=== PATIENT | male | born 1990 | race Caucasian/White ===

== ENCOUNTER 2020-02-26 04:23 | Inpatient (IN) | payer OTHER ==
[2020-02-26 05:15] LABS: Actual Bicarbonate (HCO3a) 22.6 mEq/L (22-28); Analyzer IN Cardio ER; Base Excess (BEa) 0.8 mEq/L (-2.0 to +3.0); CO2 Tension 28.7 mmHg (35.0-45.0); Calcium, Ionized (arterial) 1.11 mmol/L (1.12-1.30); Carboxyhemoglobin (COHb) 0.1 gm% (0.0-3.0); Hemoglobin (Hb) 14.3 g/dL (14.0-18.0); O2 Tension (PaO2), arterial 76.2 mmHg (80.0-100.0); pH, Arterial 7.51 (7.35-7.45)
[2020-02-26 05:16] LABS: #Basophils 0.1 thou/uL (0.0-0.2); #Lymphocytes 1.3 thou/uL (1.20-3.40); #Monocytes 0.5 thou/uL (0.11-0.59); %Basophils 0.6 % (0.0-1.0); %Eosinophils 0.4 % (0.0-10.0); %Lymphocytes 10.3 % (21.0-51.0); %Monocytes 3.9 % (0.0-10.0); %Neutrophils 84.8 % (42.0-75.0); Hemoglobin 13.3 g/dL (14.0-18.0); Mean Corpuscular HGB CONC 33.6 g/dL (32.0-36.0); Mean Corpuscular Hemoglobin 31.8 pg (27.0-31.0); Mean Corpuscular Volume 94.5 fL (78.0-98.0); Mean Platelet Volume 7.4 fL (7.4-10.4); Platelet Count 197 thou/uL (130-400); Red Blood Cell (RBC) Count 4.19 mill/uL (4.70-6.10); White Blood Cell (WBC) Count 12.9 thou/uL (4.8-10.8)
[2020-02-26 05:17] LABS: ALV-art Gradient 244.425 mmHg (0-20); Puncture Site RRA
[2020-02-26 05:30] LABS: ALT (SGPT) 27 U/L (8-55); AST (SGOT) 22 U/L (5-34); Albumin 3.7 g/dL (3.5-5.0); Alkaline Phosphatase 65 U/L (40-110); Anion Gap 16 mmol/L (10-20); BUN (Urea Nitrogen) 8 mg/dL (8.9-20.6); Bilirubin, Total 0.4 mg/dL (0.2-1.2); Calc. Creatinine Clearance 0 mL/min (70-130); Calcium 8.4 mg/dL (7.8-10.44); Carbon Dioxide 22 mmol/L (22-29); Chloride 103 mmol/L (98-107); Globulin 3.4 g/dL (2.4-3.5); Glucose 118 mg/dL (70-105); Potassium 3.5 mmol/L (3.5-5.1); Protein, Total 7.1 g/dL (6.0-8.3); Sodium 137 mmol/L (136-145)
[2020-02-26] MEDS ORDERED: cefTRIAXone\\ROCEPHIN 2 GM VIAL ONE (05:44)
--- NOTE | 2020-02-26 05:53 | PDOC.FPRHP ---
- History of Present Illness Chief Complaint: SOB History of Present Illness: Patient is a 29 year old male with no significant medical history who presents to the ED with worsening SOB. Onset 02/20/20. Reports SOB and dizziness worsens with any activity such as talking and ambulating. Patient was seen at a freestanding ED on 02/23 and diagnosed with COVID. CT Chest was reportedly clear at that time. Patient was given decadron and prescribed a Z-pack. Reports taking as prescribed. Since the ER visit on the , he reports his symptoms have worsened. Notes headache, fever, cough and diarrhea, and nausea. No vomiting. He has had blood tinged sputum. 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 She is aware of his current condition. ED Course: Initial O2 sat was 86% on RA. Transitioned to NC to max 6L with sat's up to 92%. Then transitioned to HF with improvement of sat's to 96%. CXR showed multilobular infiltrates consistent with COVID pneumonia. Given Ceftriazone 2g and azithromycin 500mg. - Allergies/Adverse Reactions Allergies Allergy/AdvReac Type Severity Reaction Status Date / Time No Known Allergies Allergy Verified 02/26/20 10:14 - Home Medications Medication Instructions Recorded Confirmed Type Ascorbic Acid [Vitamin C Chewable 1,000 mg PO DAILY 02/26/20 02/26/20 History Tablet] Aspirin Chewable 81 mg PO DAILY 02/26/20 02/26/20 History Azithromycin [Zithromax] 250 mg PO DAILY 02/26/20 02/26/20 History Cholecalciferol [Vitamin D3] 50 mcg PO DAILY 02/26/20 02/26/20 History Famotidine [Pepcid] 20 mg PO DAILY 02/26/20 02/26/20 History Zinc 23 mg PO DAILY 02/26/20 02/26/20 History - History PMHx: None PSHx: testicular torsion repair, ganglion cyst removal FHx: Noncontributory Social: Denies tobacco and drug use. ETOH use 2 times per week. - Review of Systems General: reports: fever/chills. denies: fatigue Eyes: denies: vision changes ENT: denies: nasal congestion, rhinorrhea Respiratory: reports: cough, shortness of breath Cardiovascular: reports: chest pain (tightness). denies: palpitation, edema Gastrointestinal: reports: diarrhea. denies: nausea, vomiting, abdominal pain Genitourinary: denies: dysuria Skin: denies: rashes, lesions Musculoskeletal: denies: pain Neurological: denies: seizure, weakness Psychological: denies: anxiety, depression - Vital signs BP: [113/79] HR: [100] RR: [18] Tmax: [102.1F] Pox: 97% on [HF] Wt: [111.1kg] - Physical Exam Constitutional: NAD, awake, alert and oriented HEENT: normocephalic and atraumatic, no scleral icterus, grossly normal vision, grossly normal hearing, MMM Neck: supple, FROM Chest: no-tender to palpation Heart: RRR, normal S1/S2, no edema Lungs: good air movement, no retractions, other (mild rhonchi diffusely) Abdomen: soft, non-tender, bowel sounds present Musculoskeletal: ROM grossly normal Neurological: no focal deficit Skin: no jaundice Heme/Lymphatic: no purpura, no petechia Psychiatric: normal mood and affect FMR H&P: Results - Labs Result Diagrams: 02/26/20 04:50 02/26/20 04:50 Lab results: WBC 12.9 thou/uL (4.8-10.8) H 02/26/20 04:50 Hgb 13.3 g/dL (14.0-18.0) L 02/26/20 04:50 Hct 39.6 % (42.0-52.0) L 02/26/20 04:50 MCV 94.5 fL (78.0-98.0) 02/26/20 04:50 Plt Count 197 thou/uL (130-400) 02/26/20 04:50 Neutrophils % 84.8 % (42.0-75.0) H 02/26/20 04:50 ABG pH 7.51 (7.35-7.45) H 02/26/20 05:05 ABG pCO2 28.7 mmHg (35.0-45.0) L 02/26/20 05:05 ABG pO2 76.2 mmHg (80.0-100.0) L 02/26/20 05:05 Sodium 137 mmol/L (136-145) 02/26/20 04:50 Potassium 3.5 mmol/L (3.5-5.1) 02/26/20 04:50 Chloride 103 mmol/L (98-107) 02/26/20 04:50 Carbon Dioxide 22 mmol/L (22-29) 02/26/20 04:50 BUN 8 mg/dL (8.9-20.6) L 02/26/20 04:50 Creatinine 0.89 mg/dL (0.7-1.3) 02/26/20 04:50 Glucose 118 mg/dL (70-105) H 02/26/20 04:50 Lactic Acid 1.1 mmol/L (0.5-2.2) 02/26/20 04:50 Calcium 8.4 mg/dL (7.8-10.44) 02/26/20 04:50 Total Bilirubin 0.4 mg/dL (0.2-1.2) 02/26/20 04:50 AST 22 U/L (5-34) 02/26/20 04:50 ALT 27 U/L (8-55) 02/26/20 04:50 Alkaline Phosphatase 65 U/L (40-110) 02/26/20 04:50 Serum Total Protein 7.1 g/dL (6.0-8.3) 02/26/20 04:50 Albumin 3.7 g/dL (3.5-5.0) 02/26/20 04:50 - EKG Interpretation EKG: HR 109, T wave inversions in V1, V3, V4 - Radiology Interpretation Chest x-ray Status: image reviewed by me Additional comment: Bilateral multilobular infiltrates consistent with COVID pneumonia FMR H&P: A/P - Plan Acute hypoxic lun6zevdjff respiratory failure 2/2 COVID pneumonia Respiratory alkalosis Symptom onset 02/20, ddx 02/23. 86% on RA, now at 97% on HF. ABG showed pH 7.5, pO2 76, pCO2 28.7, bicarb 22.6. -Admit to inpatient medical -s/p decadron in ED on 02/23. Start Decadron 4mg IV BID -Convalescent plasma -Remdesevir 200mg IV x 1 day, then 100mg IV Q24H -Lovenox 40mg BID -Obtain procal, ferritin, CRP, LDH, D-dimer level -EKG shows tachycardia, T wave inversion in V1/3/4/5. Will obtain repeat. Sepsis 2/2 COVID pneumonia On initial presentation in ED, was tachycardia, tachypneic, febrile at 102F. S/p Rocephin in ED. Prescribed z-pack on 02/23. -Continue Rocephin pending procal level Hx of testicular torsion s/p repair -Aware PCP: [facility] DVT ppx: Lovenox Code: FULL Fluids: SL Diet: Regular Dispo: Admit to medicine inpatient, expected LOS > 48 hours FMR H&P: Upper Level - Plan Date/Time: 02/26/20 [id number] IOmer, , have evaluated this patient and agree with findings/plan as outlined by tax services intern resident. I performed the exam and assisted in the documentation above. Addendum - Attending - Attending Attestation Date/Time: 02/26/20 9089 I personally evaluated the patient and discussed the management with Dr. Garcia and Alverto. I agree with the History, Examination, Assessment and Plan documented above with any addition or exceptions noted below. The patient is admitting with covid pneumonia. starting steroids, remdesevir and plasma. Pt will finish azithromycin which was started a few days ago. Pt is on high flow, will titrate as needed.
[2020-02-26] MEDS ORDERED: Azithromycin 500 MG VIAL ONE (06:11)
[2020-02-26] MEDS ORDERED: Acetaminophen 650 MG Suppository PR PRN (07:47)
[2020-02-26] MEDS ORDERED: Ondansetron PF 4 MG/2 ML Vial IVP PRN (07:47)
[2020-02-26] MEDS ORDERED: Ondansetron ODT 4 MG TAB PO PRN (07:47)
--- NOTE | 2020-02-26 08:16 | RAD ---
Chest AP view INDICATION: Dyspnea with Covid pneumonia COMPARISON: None FINDINGS: Lungs: There is airspace disease of the left perihilar region, right upper lobe and right infrahilar lung Cardiac silhouette: The cardiomediastinal silhouette appears within normal limits. Pulmonary vasculature: Normal Pleural spaces: No pleural effusion or pneumothorax is demonstrated. Upper abdomen: No abnormality seen. Osseous structures: No acute osseous abnormality. Additional findings: None. IMPRESSION: Bilateral pneumonia
[2020-02-26 08:56] LABS: Hemoglobin A1c 4.9 % (4.0-6.0)
[2020-02-26 09:03] LABS: Actual Bicarbonate (HCO3a) 23.3 mEq/L (22-28); Base Excess (BEa) 0.7 mEq/L (-2.0 to +3.0); CO2 Tension 31.4 mmHg (35.0-45.0); Calcium, Ionized (arterial) 1.09 mmol/L (1.12-1.30); Carboxyhemoglobin (COHb) 0.6 gm% (0.0-3.0); Hemoglobin (Hb) 13.5 g/dL (14.0-18.0); Potassium - ABG Lab 3.76 mmol/L (3.70-5.30); pH, Arterial 7.49 (7.35-7.45)
[2020-02-26 09:09] LABS: O2 Tension (PaO2), arterial 59.6 mmHg (80.0-100.0); Puncture Site RRA
[2020-02-26 09:51] VITALS: BMI 35.6
[2020-02-26] MEDS: Dexamethasone 4 mg/ml Vial SLOW IVP SCH ×2 (09:52→23:05)
[2020-02-26] MEDS: Enoxaparin Sodium 40 MG/0.4 ML SYRINGE SC SCH ×2 (09:52→23:05)
[2020-02-26] MEDS: Azithromycin 250 MG TAB PO SCH (09:53)
[2020-02-26] MEDS: Acetaminophen 325 MG TAB PO PRN ×2 (09:53→16:28)
[2020-02-26] MEDS ORDERED: REMDESIVIR (EUA) 200 MG in Sodium Chloride 0.9% 250 ML 210 ML IV SCH (16:00)
[2020-02-26] MEDS ORDERED: Ketorolac Tromethamine 60 MG/2 ML VIAL IM SCH (17:30)
--- NOTE | 2020-02-27 06:17 | PDOC.FM ---
- Subjective Subjective: Pt resting in bed this AM. No acute events overnight. Headache improved with toradol injection last night. - Objective Vital Signs & Weight: Vital Signs (12 hours) Temp Pulse Pulse Resp BP BP Pulse Ox 02/27/20 04:00 98.6 F 85 20 119/67 92 L 02/27/20 01:13 98.4 F 69 20 128/80 93 L 02/26/20 22:14 97.8 F 68 20 114/69 91 L 02/26/20 19:30 98.4 F 82 82 24 H 115/73 115/73 92 L Weight Weight 122.6 kg Most Recent Monitor Data Respiration from ECG 24 I&O: 02/25/20 02/26/20 02/27/20 06:59 06:59 06:59 Intake Total 240 Balance 240 Result Diagrams: 02/27/20 06:10 02/27/20 06:10 Phys Exam - Physical Examination Constitutional: NAD HEENT: moist MMs Neck: supple Respiratory: no wheezing, no rales, no rhonchi, clear to auscultation bilateral Cardiovascular: RRR, no significant murmur, no rub Gastrointestinal: soft, non-tender, no distention, positive bowel sounds Musculoskeletal: pulses present Neurological: moves all 4 limbs Psychiatric: normal affect, A&O x 3 Skin: normal turgor Dx/Plan - Plan Plan: ##Acute hypoxic hypocapneic respiratory failure 2/2 COVID pneumonia Symptom onset 02/20, ddx 02/23. 86% on RA, now at 97% on HF. ABG showed pH 7.5, pO2 76, pCO2 28.7, bicarb 22.6. -s/p decadron in ED on 02/23. Start Decadron 4mg IV BID -s/p Convalescent plasma -Remdesevir ordered and started, loading dose given yesterday -Lovenox 40mg BID -Procal, ferritin, CRP, LDH, D-dimer level which are elevated ##Sepsis 2/2 COVID pneumonia On initial presentation in ED, was tachycardia, tachypneic, febrile at 102F. s/p Rocephin in ED. Prescribed z-pack on 02/23. -Finishing course of azithromycin today Code: FULL Diet: Regular DVT ppx: Lovenox PCP: [facility]None Dispo as of 02/26: Pt is still on HFNC setting have been unchanged since yesterday. Not tachypneic. Continue with COVID standard txt. Will wean O2 as tolerated. Continue with symptomatic management. Addendum - Attending - Attending Attestation Date/Time: 02/27/20 [id number] I personally evaluated the patient and discussed the management with Dr. Patel. I agree with the History, Examination, Assessment and Plan documented above with any addition or exceptions noted below. The patient notes improvement in his headache. He remains on high flow oxygen and is short of breath with movement and prolonged talking. Continuing covid treatment and supportive care.
[2020-02-27 06:21] LABS: #Lymphocytes 1.3 thou/uL (1.20-3.40); #Monocytes 0.8 thou/uL (0.11-0.59); #Neutrophils 8.1 thou/uL (1.40-6.50); %Basophils 0.1 % (0.0-1.0); %Eosinophils 0.1 % (0.0-10.0); %Lymphocytes 12.7 % (21.0-51.0); %Monocytes 7.9 % (0.0-10.0); %Neutrophils 79.3 % (42.0-75.0); Hemoglobin 13.2 g/dL (14.0-18.0); Mean Corpuscular HGB CONC 33.5 g/dL (32.0-36.0); Mean Corpuscular Hemoglobin 32.3 pg (27.0-31.0); Mean Corpuscular Volume 96.5 fL (78.0-98.0); Platelet Count 226 thou/uL (130-400); RBC Distribution Width 11.1 % (11.5-14.5); Red Blood Cell (RBC) Count 4.08 mill/uL (4.70-6.10); White Blood Cell (WBC) Count 10.2 thou/uL (4.8-10.8)
[2020-02-27] MEDS ORDERED: cefTRIAXone\\ROCEPHIN 2 GM in Sodium Chloride 0.9% 100 ML IVPB SCH (06:30)
[2020-02-27 06:42] LABS: ALT (SGPT) 38 U/L (8-55); AST (SGOT) 33 U/L (5-34); Albumin 3.6 g/dL (3.5-5.0); Alkaline Phosphatase 61 U/L (40-110); Anion Gap 17 mmol/L (10-20); BUN (Urea Nitrogen) 14 mg/dL (8.9-20.6); Bilirubin, Total 0.4 mg/dL (0.2-1.2); Calc. Creatinine Clearance 243 mL/min (70-130); Calcium 8.6 mg/dL (7.8-10.44); Carbon Dioxide 24 mmol/L (22-29); Chloride 102 mmol/L (98-107); Globulin 3.7 g/dL (2.4-3.5); Glucose 127 mg/dL (70-105); Protein, Total 7.3 g/dL (6.0-8.3); Sodium 139 mmol/L (136-145)
[2020-02-27] MEDS: Enoxaparin Sodium 40 MG/0.4 ML SYRINGE SC SCH ×2 (10:37→21:22)
[2020-02-27] MEDS: Azithromycin 250 MG TAB PO SCH (10:37)
[2020-02-27] MEDS: Dexamethasone 4 mg/ml Vial SLOW IVP SCH ×2 (10:37→21:22)
[2020-02-27] MEDS ORDERED: FLU VACC QS2020-21(6MOS UP)/PF 60 MCG/0.5 ML SYRINGE IM ONE (12:00)
[2020-02-27] MEDS ORDERED: Mometasone 100 MCG/Formoterol 5 MCG 120 PUFF INHALER INH PRN (12:53)
[2020-02-27] MEDS: REMDESIVIR (EUA) 100 MG in Sodium Chloride 0.9% 250 ML 230 ML IV SCH (16:11)
[2020-02-28 00:19] LABS: Actual Bicarbonate (HCO3a) 24.6 mEq/L (22-28); Base Excess (BEa) 1.1 mEq/L (-2.0 to +3.0); CO2 Tension 35.5 mmHg (35.0-45.0); Calcium, Ionized (arterial) 1.15 mmol/L (1.12-1.30); Carboxyhemoglobin (COHb) 0.5 gm% (0.0-3.0); Hemoglobin (Hb) 13.9 g/dL (14.0-18.0); O2 Tension (PaO2), arterial 66.6 mmHg (80.0-100.0); Potassium - ABG Lab 4.04 mmol/L (3.70-5.30); pH, Arterial 7.46 (7.35-7.45)
[2020-02-28 00:22] LABS: Puncture Site RRA
[2020-02-28 00:23] LABS: ALV-art Gradient 316.825 mmHg (0-20)
--- NOTE | 2020-02-28 06:25 | PDOC.FM ---
- Subjective Subjective: Pt resting in bed this AM. No acute events overnight. - Objective Vital Signs & Weight: Vital Signs (12 hours) Temp Pulse Resp BP Pulse Ox 02/28/20 03:16 98.4 F 62 18 122/70 93 L 02/27/20 23:29 98.9 F 76 18 134/74 92 L 02/27/20 19:33 98.5 F 74 16 132/79 91 L Weight Weight 122.6 kg Most Recent Monitor Data Respiration from ECG 24 I&O: 02/26/20 02/27/20 02/28/20 06:59 06:59 06:59 Intake Total 240 2690 Balance 240 2690 Result Diagrams: 02/28/20 06:17 02/28/20 06:17 Phys Exam - Physical Examination Constitutional: NAD on HFNC HEENT: moist MMs Neck: supple Respiratory: no wheezing, no rales, no rhonchi, clear to auscultation bilateral Cardiovascular: RRR, no significant murmur, no rub Gastrointestinal: soft, non-tender, no distention, positive bowel sounds Musculoskeletal: pulses present Neurological: moves all 4 limbs Psychiatric: normal affect, A&O x 3 Skin: normal turgor Dx/Plan - Plan Plan: ##Acute hypoxic hypocapneic respiratory failure 2/2 COVID pneumonia -s/p decadron in ED on 02/23. Start Decadron 4mg IV BID -s/p Convalescent plasma -Remdesevir ordered and started -Lovenox 40mg BID -Procal, ferritin, CRP, LDH, D-dimer level which are elevated -on HFNC, increased FiO2 from 50-60% ##Sepsis 2/2 COVID pneumonia On initial presentation in ED, was tachycardia, tachypneic, febrile at 102F. s/p Rocephin in ED. Prescribed z-pack on 02/23. -Finished course of azithromycin Code: FULL Diet: Regular DVT ppx: Lovenox PCP: [facility]None Dispo as of 02/27: Pt is still on HFNC FiO2 has been increased from 50-60 FiO2 last night, O2 flow steady at 45L satting low 90%. Not tachypneic. Continue with COVID standard txt. Will wean O2 as tolerated. Continue with symptomatic managem ent. Addendum - Attending - Attending Attestation Date/Time: 02/28/20 5026 I personally evaluated the patient and discussed the management with Dr. Patel. I agree with the History, Examination, Assessment and Plan documented above with any addition or exceptions noted below.
[2020-02-28 06:52] LABS: #Lymphocytes 1.7 thou/uL (1.20-3.40); #Monocytes 1.3 thou/uL (0.11-0.59); #Neutrophils 14.1 thou/uL (1.40-6.50); %Basophils 0.1 % (0.0-1.0); %Eosinophils 0.2 % (0.0-10.0); %Lymphocytes 9.8 % (21.0-51.0); %Monocytes 7.4 % (0.0-10.0); %Neutrophils 82.5 % (42.0-75.0); Hemoglobin 13.5 g/dL (14.0-18.0); Mean Corpuscular HGB CONC 33.2 g/dL (32.0-36.0); Mean Corpuscular Hemoglobin 31.8 pg (27.0-31.0); Mean Corpuscular Volume 95.7 fL (78.0-98.0); Mean Platelet Volume 7.6 fL (7.4-10.4); Platelet Count 289 thou/uL (130-400); RBC Distribution Width 11.3 % (11.5-14.5); Red Blood Cell (RBC) Count 4.26 mill/uL (4.70-6.10); White Blood Cell (WBC) Count 17.1 thou/uL (4.8-10.8)
[2020-02-28 07:14] LABS: ALT (SGPT) 67 U/L (8-55); AST (SGOT) 47 U/L (5-34); Albumin 3.6 g/dL (3.5-5.0); Alkaline Phosphatase 62 U/L (40-110); Anion Gap 15 mmol/L (10-20); BUN (Urea Nitrogen) 13 mg/dL (8.9-20.6); Bilirubin, Total 0.3 mg/dL (0.2-1.2); Calc. Creatinine Clearance 237 mL/min (70-130); Calcium 8.8 mg/dL (7.8-10.44); Carbon Dioxide 25 mmol/L (22-29); Chloride 103 mmol/L (98-107); Globulin 3.8 g/dL (2.4-3.5); Glucose 130 mg/dL (70-105); Potassium 4.3 mmol/L (3.5-5.1); Protein, Total 7.4 g/dL (6.0-8.3); Sodium 139 mmol/L (136-145)
[2020-02-28] MEDS: Dexamethasone 4 mg/ml Vial SLOW IVP SCH ×2 (08:45→21:00)
[2020-02-28] MEDS: Enoxaparin Sodium 40 MG/0.4 ML SYRINGE SC SCH ×2 (08:45→21:00)
[2020-02-28] MEDS ORDERED: Ketorolac Tromethamine 60 MG/2 ML VIAL IM SCH (08:45)
[2020-02-28] MEDS ORDERED: Albuterol Sulfate 2.5 mg/3 ml Neb NEB PRN (10:02)
[2020-02-28] MEDS: Acetaminophen 325 MG TAB PO PRN (13:18)
[2020-02-28] MEDS: Albuterol 200 PUFF (6.7GM INHALER) INH SCH ×3 (16:49→19:00)
[2020-02-28] MEDS: REMDESIVIR (EUA) 100 MG in Sodium Chloride 0.9% 250 ML 230 ML IV SCH (16:50)
--- NOTE | 2020-02-29 06:34 | PDOC.FM ---
- Subjective Subjective: Overall respiratory status better, patient with pleurisy, pain with deep breathing. Otherwise no acute concerns. - Objective MAR Reviewed: Yes Vital Signs & Weight: Vital Signs (12 hours) Temp Pulse Resp BP Pulse Ox 02/29/20 00:00 98.4 F 63 20 118/67 91 L 02/28/20 19:59 98.3 F 59 L 20 129/75 91 L Weight Weight 122.6 kg Most Recent Monitor Data Respiration from ECG 24 I&O: 02/27/20 02/28/20 02/29/20 06:59 06:59 06:59 Intake Total 240 2690 Balance 240 2690 Result Diagrams: 02/29/20 06:09 02/29/20 06:09 Phys Exam - Physical Examination Constitutional: NAD Respiratory: no wheezing, no rales, no rhonchi, clear to auscultation bilateral Decreased air movement Cardiovascular: RRR, no significant murmur, no rub Gastrointestinal: soft, non-tender, no distention, positive bowel sounds Musculoskeletal: no edema Neurological: non-focal Dx/Plan - Plan Plan: Acute hypoxic hypocapneic respiratory failure 2/2 COVID pneumonia - Decadron 4mg IV BID, started 02/25, switch to PO today - s/p Convalescent plasma - Remdesevir started 02/26 - Lovenox 40mg BID - Procal, ferritin, CRP, LDH, D-dimer level elevated on admission - on HFNC, FiO2 stable at 60% Sepsis 2/2 COVID pneumonia On initial presentation in ED, was tachycardia, tachypneic, febrile at 102F. s/p Rocephin in ED. Prescribed z-pack on 02/23. -Finished course of azithromycin Code: FULL Diet: Regular DVT ppx: Lovenox PCP: [facility]None Dispo as of 02/27: Pt is still on HFNC FiO2 has been stable last night, O2 flow steady at 50L. Continue with COVID standard txt. Will wean O2 as tolerated. Continue with symptomatic management. Addendum - Attending - Attending Attestation Date/Time: 02/29/20 0687 I personally evaluated the patient and discussed the management with Dr. Ball. I agree with the History, Examination, Assessment and Plan documented above with any addition or exceptions noted below. Patient stable. Continue COVID care, wean HFNC as tolerated.
[2020-02-29 06:36] LABS: #Basophils 0.1 thou/uL (0.0-0.2); #Eosinphils 0.1 thou/uL (0.0-0.7); #Lymphocytes 1.9 thou/uL (1.20-3.40); #Monocytes 2.2 thou/uL (0.11-0.59); #Neutrophils 14.9 thou/uL (1.40-6.50); %Basophils 0.4 % (0.0-1.0); %Eosinophils 0.5 % (0.0-10.0); %Lymphocytes 9.9 % (21.0-51.0); %Monocytes 11.4 % (0.0-10.0); %Neutrophils 77.8 % (42.0-75.0); Hemoglobin 13.5 g/dL (14.0-18.0); Mean Corpuscular HGB CONC 32.2 g/dL (32.0-36.0); Mean Corpuscular Volume 96.3 fL (78.0-98.0); Mean Platelet Volume 7.5 fL (7.4-10.4); Platelet Count 321 thou/uL (130-400); RBC Distribution Width 11.1 % (11.5-14.5); Red Blood Cell (RBC) Count 4.37 mill/uL (4.70-6.10); White Blood Cell (WBC) Count 19.1 thou/uL (4.8-10.8)
[2020-02-29 07:03] LABS: ALT (SGPT) 130 U/L (8-55); AST (SGOT) 63 U/L (5-34); Albumin 3.6 g/dL (3.5-5.0); Alkaline Phosphatase 65 U/L (40-110); Anion Gap 16 mmol/L (10-20); BUN (Urea Nitrogen) 19 mg/dL (8.9-20.6); Bilirubin, Total 0.5 mg/dL (0.2-1.2); Calc. Creatinine Clearance 237 mL/min (70-130); Calcium 8.8 mg/dL (7.8-10.44); Carbon Dioxide 25 mmol/L (22-29); Chloride 103 mmol/L (98-107); Globulin 3.6 g/dL (2.4-3.5); Glucose 119 mg/dL (70-105); Potassium 4.5 mmol/L (3.5-5.1); Protein, Total 7.2 g/dL (6.0-8.3); Sodium 139 mmol/L (136-145)
[2020-02-29] MEDS: Dexamethasone 4 mg/ml Vial SLOW IVP SCH (09:07)
[2020-02-29] MEDS: Enoxaparin Sodium 40 MG/0.4 ML SYRINGE SC SCH ×2 (09:08→20:22)
[2020-02-29] MEDS: Albuterol 200 PUFF (6.7GM INHALER) INH SCH ×3 (09:10→19:40)
[2020-02-29] MEDS: REMDESIVIR (EUA) 100 MG in Sodium Chloride 0.9% 250 ML 230 ML IV SCH (16:47)
[2020-02-29] MEDS ORDERED: Dexamethasone 4 MG TAB PO SCH (21:00)
--- NOTE | 2020-03-01 06:37 | PDOC.FM ---
- Subjective Subjective: Patient breathing better this AM. Is asking about going home. Otherwise feeling well. - Objective MAR Reviewed: Yes Vital Signs & Weight: Vital Signs (12 hours) Temp Pulse Resp BP Pulse Ox 03/01/20 04:10 58 L 18 93 L 02/29/20 20:10 97.8 F 61 18 123/74 91 L Weight Weight 122.6 kg Most Recent Monitor Data Respiration from ECG 24 I&O: 02/28/20 02/29/20 03/01/20 06:59 06:59 06:59 Intake Total 2690 Balance 2690 Result Diagrams: 03/01/20 07:34 03/01/20 07:34 Phys Exam - Physical Examination Constitutional: NAD Respiratory: no wheezing, no rales, no rhonchi, clear to auscultation bilateral Cardiovascular: RRR, no significant murmur, no rub Gastrointestinal: soft, non-tender, no distention, positive bowel sounds Dx/Plan - Plan Plan: Acute hypoxic hypocapneic respiratory failure 2/2 COVID pneumonia - Decadron 4mg IV BID, started 02/25, switched to PO 6 mg QD 02/28 - s/p Convalescent plasma - Remdesevir started 02/26 - Lovenox 40mg BID - Procal, ferritin, CRP, LDH, D-dimer level elevated on admission - on HFNC, FiO2 stable at 60% - Wean HFNC as tolerated - Start process for home O2 Sepsis 2/2 COVID pneumonia On initial presentation in ED, was tachycardia, tachypneic, febrile at 102F. s/p Rocephin in ED. Prescribed z-pack on 02/23. -Finished course of azithromycin Code: FULL Diet: Regular DVT ppx: Lovenox PCP: [facility]None Dispo as of 02/27: Pt is still on HFNC FiO2 has been stable last night, O2 flow steady at 50L. Continue with COVID standard txt. Will wean O2 as tolerated. Continue with symptomatic management. Would like to get patient on NC and headed towards DC as patient and VS tolerate. Addendum - Attending - Attending Attestation Date/Time: 03/01/20 9227 I personally evaluated the patient and discussed the management with Dr. Ball. I agree with the History, Examination, Assessment and Plan documented above with any addition or exceptions noted below.
[2020-03-01 08:01] LABS: Hemoglobin 13.7 g/dL (14.0-18.0); Mean Corpuscular HGB CONC 33.1 g/dL (32.0-36.0); Mean Corpuscular Volume 96.6 fL (78.0-98.0); Mean Platelet Volume 7.4 fL (7.4-10.4); Platelet Count 350 thou/uL (130-400); RBC Distribution Width 11.2 % (11.5-14.5); Red Blood Cell (RBC) Count 4.29 mill/uL (4.70-6.10); White Blood Cell (WBC) Count 17.4 thou/uL (4.8-10.8)
[2020-03-01 08:10] LABS: ALT (SGPT) 166 U/L (8-55); AST (SGOT) 57 U/L (5-34); Albumin 3.6 g/dL (3.5-5.0); Alkaline Phosphatase 73 U/L (40-110); Anion Gap 16 mmol/L (10-20); BUN (Urea Nitrogen) 18 mg/dL (8.9-20.6); Bilirubin, Total 0.6 mg/dL (0.2-1.2); Calc. Creatinine Clearance 234 mL/min (70-130); Calcium 8.8 mg/dL (7.8-10.44); Carbon Dioxide 24 mmol/L (22-29); Chloride 104 mmol/L (98-107); Globulin 3.4 g/dL (2.4-3.5); Glucose 86 mg/dL (70-105); Potassium 4.5 mmol/L (3.5-5.1); Sodium 139 mmol/L (136-145)
[2020-03-01] MEDS: Dexamethasone 4 MG TAB PO SCH (08:35)
[2020-03-01] MEDS: Albuterol 200 PUFF (6.7GM INHALER) INH SCH ×4 (08:37→18:31)
[2020-03-01] MEDS: Enoxaparin Sodium 40 MG/0.4 ML SYRINGE SC SCH ×2 (08:37→19:51)
[2020-03-01 08:52] LABS: Band 7 % (5-11); Eosinophils 1 % (0-10); Lymphocytes 24 % (21-51); MDiff Complete? YES; Metamyelocyte 3 % (0-0); Monocytes 10 % (0-10); Myelocyte 4 % (0-0); Neutrophil 45 % (42-75); Platelet Morphology Comment Appears Adequate; RBC Morphology Normal; Reactive Lymphocytes 6 % (0-10)
[2020-03-01] MEDS: REMDESIVIR (EUA) 100 MG in Sodium Chloride 0.9% 250 ML 230 ML IV SCH (16:14)
[2020-03-02 06:33] LABS: #Basophils 0.1 thou/uL (0.0-0.2); #Eosinphils 0.2 thou/uL (0.0-0.7); #Monocytes 1.5 thou/uL (0.11-0.59); #Neutrophils 9.5 thou/uL (1.40-6.50); %Basophils 0.6 % (0.0-1.0); %Eosinophils 1.2 % (0.0-10.0); %Lymphocytes 26.3 % (21.0-51.0); %Monocytes 9.5 % (0.0-10.0); %Neutrophils 62.4 % (42.0-75.0); Hemoglobin 14.2 g/dL (14.0-18.0); Mean Corpuscular Hemoglobin 31.7 pg (27.0-31.0); Mean Corpuscular Volume 96.2 fL (78.0-98.0); Mean Platelet Volume 7.3 fL (7.4-10.4); Platelet Count 373 thou/uL (130-400); RBC Distribution Width 11.1 % (11.5-14.5); Red Blood Cell (RBC) Count 4.48 mill/uL (4.70-6.10); White Blood Cell (WBC) Count 15.2 thou/uL (4.8-10.8)
--- NOTE | 2020-03-02 06:39 | PDOC.FM ---
- Subjective Subjective: Patient doing well this AM. Anxious to go home. Denies dyspnea. - Objective MAR Reviewed: Yes Vital Signs & Weight: Vital Signs (12 hours) Temp Pulse Resp BP Pulse Ox 03/02/20 03:45 60 16 90 L 03/02/20 00:39 93 L 03/02/20 00:15 98.3 F 46 L 16 113/67 93 L 03/01/20 20:00 98.2 F 64 18 114/65 91 L Weight Weight 122.6 kg Most Recent Monitor Data Respiration from ECG 24 I&O: 02/29/20 03/01/20 03/02/20 06:59 06:59 06:59 Intake Total 350 Balance 350 Result Diagrams: 03/02/20 05:50 03/02/20 05:50 Phys Exam - Physical Examination Constitutional: NAD Respiratory: no wheezing, no rales, no rhonchi, clear to auscultation bilateral Cardiovascular: RRR, no significant murmur, no rub Gastrointestinal: soft, non-tender, no distention, positive bowel sounds Dx/Plan - Plan Plan: Acute hypoxic hypocapneic respiratory failure 2/2 COVID pneumonia - Decadron 4mg IV BID, started 02/25, switched to PO 6 mg QD 02/28 - s/p Convalescent plasma - Remdesevir started 02/26 - Lovenox 40mg BID - Procal, ferritin, CRP, LDH, D-dimer level elevated on admission - on 6L NC, Wean as tolerated - Start process for home O2 Sepsis 2/2 COVID pneumonia On initial presentation in ED, was tachycardia, tachypneic, febrile at 102F. s/p Rocephin in ED. Prescribed z-pack on 02/23. -Finished course of azithromycin Code: FULL Diet: Regular DVT ppx: Lovenox PCP: [facility]None Dispo as of 02/27: Pt is still on HFNC FiO2 has been stable last night, O2 flow steady at 50L. Continue with COVID standard txt. Will wean O2 as tolerated. Continue with symptomatic management. Would like to get patient to 4L or less on NC and headed towards DC as patient and VS tolerate. Addendum - Attending - Attending Attestation Date/Time: 03/02/20 7717 I personally evaluated the patient and discussed the management with Dr. Ball. I agree with the History, Examination, Assessment and Plan documented above with any addition or exceptions noted below. Patient improved. Weaned from HFNC and doing well on NC. If can continue that course and feels well without desaturation with activity, should be stable for discharge home with home O2. He has completed the usual COVID therapies.
[2020-03-02 07:00] LABS: ALT (SGPT) 225 U/L (8-55); AST (SGOT) 55 U/L (5-34); Albumin 3.6 g/dL (3.5-5.0); Alkaline Phosphatase 81 U/L (40-110); Anion Gap 14 mmol/L (10-20); BUN (Urea Nitrogen) 17 mg/dL (8.9-20.6); Bilirubin, Total 0.5 mg/dL (0.2-1.2); Calc. Creatinine Clearance 246 mL/min (70-130); Calcium 8.7 mg/dL (7.8-10.44); Carbon Dioxide 24 mmol/L (22-29); Chloride 103 mmol/L (98-107); Globulin 3.5 g/dL (2.4-3.5); Glucose 87 mg/dL (70-105); Potassium 4.1 mmol/L (3.5-5.1); Protein, Total 7.1 g/dL (6.0-8.3); Sodium 137 mmol/L (136-145)
[2020-03-02] MEDS: Albuterol 200 PUFF (6.7GM INHALER) INH SCH ×2 (08:00→12:00)
[2020-03-02] MEDS: Enoxaparin Sodium 40 MG/0.4 ML SYRINGE SC SCH (10:02)
[2020-03-02] MEDS: Dexamethasone 4 MG TAB PO SCH (11:12)
[2020-03-02 12:11] VITALS: BP 107/69; TEMP 98.5
--- NOTE | 2020-03-02 22:16 | DIS ---
DATE OF ADMISSION: 02/26/2020 DATE OF DISCHARGE: 03/02/2020 RESIDENT: Terry Ball M.D. ADMITTING ATTENDING: Carolyn Cavazos M.D. DISCHARGE ATTENDING: Oleg Foreman MD PROCEDURE: Chest x-ray performed 02/26/2020, consistent with COVID pneumonia. PRIMARY DIAGNOSIS: Acute hypoxic hypercapnic respiratory failure due to COVID pneumonia with respiratory alkalosis. SECONDARY DIAGNOSIS: Sepsis due to COVID pneumonia. DISCHARGE MEDICATIONS: 1. Tylenol 650 mg p.o. q.4 hours p.r.n. 2. Albuterol 2 puffs inhaler q.4 hours p.r.n. 3. Vitamin C 1000 mg p.o. daily. 4. Aspirin 81 mg p.o. daily. 5. Vitamin D 50 mcg p.o. daily. 6. Pepcid 20 mg p.o. daily. 7. Zinc 23 mg p.o. daily. Discontinued Medications: None. HISTORY OF PRESENT ILLNESS/HOSPITAL COURSE: The patient is a 29-year-old male with no significant past medical history, who presents to the ED with worsening shortness of breath. The patient reported in the ED that symptoms started on 02/20/2020. Later on hospital stay, the patient reported that symptoms started on 02/24 to 02/25. The patient had positive COVID test on 02/23 at free-standing ED with clear CT chest. At that time, patient was given Decadron and prescribed azithromycin. During hospital stay, patient completed prescribed azithromycin course. On ED admission, O2 saturation was 86% on room air and transition to a high-flow nasal cannula. The patient required high-flow nasal cannula and was eventually weaned to 4 L of nasal cannula. The patient received remdesivir for full course as well as Decadron during hospital admission. The patient received ceftriaxone 2 g in the ED. The patient also received convalescent plasma on 02/25. The patient had daily CMPs concerning for increasing ALT. On admission, ALT was 27; on discharge, ALT was 225. On day of discharge, the patient is on 4 L nasal cannula and stable. At rest, the patient had O2 saturations of 92% to 95%. With exertion, the patient's O2 saturations did not drop below 90%. Home oxygen was set up. Discussed isolation for 10 days from onset of symptoms. DISPOSITION: Stable. DISCHARGE INSTRUCTIONS: Location: Home. Diet: Regular. Activity: As tolerated. I discussed with patient to limit activity given likely increased fatigue and shortness of breath. FOLLOWUP: The patient is to follow up with PCP within 1 to 2 weeks. Patient did not have a PCP on admission. Discussed choosing PCP and said [facility]; however, he could see any other doctor as well. Stressed importance of repeating liver enzyme tests and overall checking on progression with COVID symptoms. Job ID: [id number] [facility] HOSPITALDeonte
--- NOTE | 2020-03-04 14:15 | EKG ---
Test Reason : Blood Pressure : / mmHG Vent. Rate : 109 BPM Atrial Rate : 109 BPM P-R Int : 136 ms QRS Dur : 076 ms QT Int : 306 ms P-R-T Axes : 025 009 -03 degrees QTc Int : 412 ms Sinus tachycardia T wave abnormality, consider anterior ischemia Abnormal ECG Confirmed by SOPHIE CABRALES ([id number]), editorial cartoonist KASSIE JEFFERSON ([id number]) on 03/04/2020 2:15:21 PM Referred By: Confirmed By:SOPHIE CABRALES
== END 2020-03-02 14:05 | disposition home or self-care (01) | DRG 871 ==
LOC: ERS 04:23 → T4-B 05:52
PROVIDERS: ADMIT Family Medicine; ATTEND Family Medicine
PROC: 8E0ZXY6 Isolation (ICD-10-PCS; principal; 2020-02-26)
PROC: XW033E5 Introduction of Remdesivir Anti-infective into Peripheral Vein, Percutaneous Approach, New Technology Group 5 (ICD-10-PCS; 2020-02-26)
PROC: 5A0955A Assistance with Respiratory Ventilation, Greater than 96 Consecutive Hours, High Flow/Velocity Cannula (ICD-10-PCS; 2020-02-26)
DX: A41.89 Other specified sepsis (principal); U07.1 COVID-19; J12.89 Other viral pneumonia; J96.01 Acute respiratory failure with hypoxia; J96.02 Acute respiratory failure with hypercapnia; E87.3 Alkalosis; Z79.82 Long term (current) use of aspirin; Z79.2 Long term (current) use of antibiotics; Z98.890 Other specified postprocedural states
CPT/HCPCS: 36415; 36430; 36600; 71045; 80053; 82728; 82805; 83036; 83605; 83615; 83880; 84145; 84484; 85025; 85379; 86140; 86850; 86900; 86901; 87040; 93005; 96365; 96367; J0456; J0696; J1100; J1650; J1885; J7050; J8540; P9017